=== PATIENT | female | born 1975 | race Caucasian/White ===

== ENCOUNTER 2018-03-16 23:29 | Emergency (ER) | payer MEDICAID ==
[~2018-03-16] VITALS: Ht 157.5 cm; Wt 56.7 kg
--- NOTE | 2018-03-16 23:40 | NUR ---
Patient arrived via [facility], Patient has c/o CP ongoing for 2 weeks, worse today. Midsternal , pressure like pain. Patient was given 2 doses of Nitro SL and 162mg of ASA SCENIC ARTIST. Current pain level is 5/10
[2018-03-16] MEDS ORDERED: IV NORMAL SALINE 500 ML BAG IV ONE (23:45)
--- NOTE | 2018-03-16 23:48 | NUR ---
PT BIB [facility]. PT A/OX4, RESPONSIVE TO VERBAL AND TACTILE STIMULI. PT C/O INTERMITTENT C/P THAT STARTED ABOUT 2 WEEKS AGO, BUT WORSE TODAY. C/P IN L CHEST. PT DENIES STRENUOUS ACTIVITY AT THE TIME OF C/P ONSET, PAIN PROVOKED UPON DEEP BREATHING, DOES NOT RADIATE, 5/10 AT THIS TIME. PT VSS. PT PRESENTS W/ BLE EDEMA. PT DENIES ANY MEDICAL HX. PT STATES SHE IS TAKING HYDROCHLOROTHIAZIDE THAT SHE GETS FROM A DIET CLINIC. DENIES SOB, N/V/D, DIZZINESS, HEADACHE. XRAY AT BEDSIDE.
--- NOTE | 2018-03-16 23:48 | NUR ---
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
[2018-03-16 23:56] LABS: BASOPHILS # (AUTO) 0.1 K/uL (0.0-8.0); EOSINOPHILS # (AUTO) 0.1 K/uL (0.0-0.7); EOSINOPHILS % (AUTO) 0.8 % (0.0-7.0); HEMATOCRIT 39.3 % (31.2-41.9); HEMOGLOBIN 13.7 g/dL (10.9-14.3); LYMPHOCYTES # (AUTO) 2.4 K/uL (20.0-40.0); LYMPHOCYTES % (AUTO) 30.7 % (20.5-51.5); MEAN CORPUSCULAR HEMOGLOBIN 31.6 uug (24.7-32.8); MEAN CORPUSCULAR HGB CONC 35 g/dL (32.3-35.6); MEAN CORPUSCULAR VOLUME 90.6 fL (75.5-95.3); MONOCYTES # (AUTO) 0.6 K/uL (2.0-10.0); MONOCYTES % (AUTO) 6.9 % (0.0-11.0); NEUTROPHILS # (AUTO) 4.8 K/uL (1.8-8.9); NEUTROPHILS % (AUTO) 60.6 % (38.5-71.5); PLATELET COUNT (AUTO) 263 K/uL (179-408); RED BLOOD CELL COUNT(AUTO) 4.34 MIL/uL (3.63-4.92); WHITE BLOOD COUNT (AUTO) 7.9 K/uL (3.8-11.8)
[2018-03-17 00:03] LABS: CREATININE 0.7 mg/dL (0.6-1.3); POTASSIUM 3.7 mmol/L (3.5-5.1)
[2018-03-17 00:15] LABS: BILIRUBIN,DIRECT 0.2 mg/dL (0.0-0.2); BILIRUBIN,TOTAL 0.6 mg/dL (0.2-1.0); TOTAL PROTEIN, SERUM 7.7 g/dL (6.4-8.2)
--- NOTE | 2018-03-17 00:23 | NUR ---
Patient discharged to home in stable conditon. Written and verbal after care instructions given. Patient verbalizes understanding of instructions. ALL BELONGINGS W/ PT. PT SELF-AMBULATED WITHOUT DIFFICULTY. PT INSTRUCTED TO F/U W/ PCP. PT WILL BE PICKED UP BY FAMILY IN PRIVATE VEHICLE.
--- NOTE | 2018-03-17 00:24 | NUR ---
18 G AC IV ACCESS REMOVED PRIOR TO D/C.
[2018-03-17 00:25] VITALS: BP 104/68
== END 2018-03-17 00:25 | disposition home or self-care (01) ==
LOC: ER 23:34
DX: R07.89 Other chest pain (principal)
CPT/HCPCS: 36415; 71045; 80048; 80076; 83880; 84484; 85025; 85730; 93005; 99285; A4663; J7040; 70030-TC